=== PATIENT | male | born 1980 | race Caucasian/White ===

== ENCOUNTER 2023-07-21 12:35 | Emergency (ER) | payer BC ==
[~2023-07-21] VITALS: Ht 182.9 cm; Wt 104.5 kg
[2023-07-21 12:42] VITALS: BP 130/80; TEMP 97.9
[2023-07-21] MEDS ORDERED: Morphine 10 MG/ML VIAL IM ONE (13:00)
[2023-07-21] MEDS ORDERED: MOTRIN 800800 MG/TAB PO (13:08)
[2023-07-21 13:21] VITALS: PULSE 85
== END 2023-07-21 13:21 | disposition home or self-care (01) ==
LOC: COL.ER 12:35
DX: R20.2 Paresthesia of skin (principal)

== ENCOUNTER 2023-08-31 17:09 | Emergency (ER) | payer SELFPAY ==
[~2023-08-31] VITALS: Ht 185.4 cm; Wt 104.5 kg
[~2023-08-31 17:09] MED LIST: MOTRIN 800800 MG/TAB PO
[2023-08-31 17:18] VITALS: BP 141/90; TEMP 98.4
[2023-08-31] MEDS ORDERED: POLYMYXIN B/TRIMETH OD (17:52)
[2023-08-31 18:07] VITALS: PULSE 102
== END 2023-08-31 18:07 | disposition home or self-care (01) ==
LOC: COL.ER 17:09
DX: S05.01XA Injury of conjunctiva and corneal abrasion without foreign body, right eye, initial encounter (principal); M75.21 Bicipital tendinitis, right shoulder; X58.XXXA Exposure to other specified factors, initial encounter